=== PATIENT | male | born 1955 | race Caucasian/White ===

== ENCOUNTER 2017-09-04 12:05 | Emergency (ER) | payer OTHER ==
[~2017-09-04] VITALS: Ht 175.3 cm; Wt 91.0 kg
[~2017-09-04 12:05] MED LIST: AMLO5TAB96 PO; ASPI81 PO; AUGM875T PO; BENA25TA3 PO; LISI-357 PO; METF500T PO; [UNRECOGNIZED DRUG - OTHER]
[2017-09-04 12:07] VITALS: BP 125/83; PULSE 100; RESP 13; TEMP 98.3; O2SAT 98
[2017-09-04] MEDS ORDERED: SODIUM CHLOR 0.9% 1000 ML INJ 1,000 ML IV SCH ×2 (12:25→14:03)
[2017-09-04] MEDS ORDERED: ONDANSETRON HCL 4 MG/2 ML VIAL IVP ONE (12:30)
[2017-09-04] MEDS ORDERED: clonazePAM 1 MG TAB PO ONE (12:30)
--- NOTE | 2017-09-04 12:44 | PD ---
HPI Chief Complaint: Dizziness Time Seen by Provider: 12:20 Travel History International Travel<30 days: No Contact w/Intl Traveler<30days: No Traveled to known affect area: No History of Present Illness HPI 61-year-old male that presents to the ED for evaluation of dizziness with nausea and vomiting. Per patient is started on after again a flu shot. Per patient he happened literally an hour after he got the flu shot. Per patient his been continues. Per patient laying down makes the nausea better but standing makes the nausea worse and his vomiting. He has used some Phenergan suppositories from his with some relief. Per patient he was standing makes it severely worse. He denies any other weakness. No palpitations. No chest pain or shortness of breath. He does have a history of diabetes and hypertension. Denies any urinary or bowel movement issues. No numbness or tingling. No congestion or cough. No fevers chills or sweats. No history of vertigo in the past. No history of stroke in the past. Has never had a reaction like this before. 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 Reported Metformin (Metformin HCl) 500 Mg Tab 500 Mg PO BIDPC With meals Benadryl Allergy (Diphenhydramine HCl) 25 Mg Tab 25 Mg PO Q6H PRN Sudafed Nasal Decongestan (Pseudoephedrine HCl) Unknown Strength Tab Unknown Dose Lisinopril 5 mg (Lisinopril) 5 Mg Tab 5 Mg PO DAILY Aspirin 81 Mg Tab 81 Mg PO DAILY Norvasc (Amlodipine Besylate) 5 Mg Tab 5 Mg PO DAILY Review of Systems Except as stated in HPI: all other systems reviewed are Neg Physical Exam Narrative GENERAL: SKIN: Warm and dry. HEAD: Atraumatic. Normocephalic. EYES: Pupils equal and round. No scleral icterus. No injection or drainage. ENT: No nasal bleeding or discharge. Mucous membranes pink and moist. Tongue is midline. No uvula deviation. NECK: Trachea midline. No JVD. CARDIOVASCULAR: Regular rate and rhythm. No murmurs, S3, S4. RESPIRATORY: No accessory muscle use. Clear to auscultation. Breath sounds equal bilaterally. GASTROINTESTINAL: Abdomen soft, non-tender, nondistended. Hepatic and splenic margins not palpable. MUSCULOSKELETAL: Extremities without clubbing, cyanosis, or edema. No obvious deformities. Full range of motion of the upper and lower extremities bilaterally. 2+ pulses bilaterally. NEUROLOGICAL: Awake and alert. No obvious cranial nerve deficits. Motor grossly within normal limits. Five out of 5 muscle strength in the arms and legs. Normal speech. PSYCHIATRIC: Appropriate mood and affect; insight and judgment normal. Data Data Last Documented VS Vital Signs Date Time Temp Pulse Resp B/P (MAP) Pulse Ox O2 Delivery O2 Flow Rate FiO2 09/04/17 13:28 67 19 156/88 (110) 79 19 152/92 (112) 81 23 160/98 (118) 09/04/17 12:07 98.3 98 Orders Orders Electrocardiogram (09/04/17 12:25) Complete Blood Count With Diff (09/04/17 12:25) Basic Metabolic Panel (Bmp) (09/04/17 12:25) Ckmb (Isoenzyme) Profile (09/04/17 12:25) Troponin I (09/04/17 12:25) Ct Brain W/O Iv Contrast(Rout) (09/04/17 12:25) Iv Access Insert/Monitor (09/04/17 12:25) Ecg Monitoring (09/04/17 12:25) Oximetry (09/04/17 12:25) Ondansetron Inj (Zofran Inj) (09/04/17 12:30) Sodium Chlor 0.9% 1000 Ml Inj (Ns 1000 M (09/04/17 12:25) Clonazepam (Klonopin) (09/04/17 12:30) Orthostatic Vital Signs (09/04/17 12:31) Meclizine (Antivert) (09/04/17 12:45) Insulin Human Regular Inj (Novolin R Inj (09/04/17 13:45) Sodium Chlor 0.9% 1000 Ml Inj (Ns 1000 M (09/04/17 14:03) Labs Laboratory Tests Test 09/04/17 12:40 White Blood Count 3.5 TH/MM3 Red Blood Count 4.85 MIL/MM3 Hemoglobin 15.3 GM/DL Hematocrit 42.1 % Mean Corpuscular Volume 86.8 FL Mean Corpuscular Hemoglobin 31.6 PG Mean Corpuscular Hemoglobin Concent 36.4 % Red Cell Distribution Width 13.1 % Platelet Count 261 TH/MM3 Mean Platelet Volume 7.8 FL Neutrophils (%) (Auto) 64.6 % Lymphocytes (%) (Auto) 20.0 % Monocytes (%) (Auto) 11.9 % Eosinophils (%) (Auto) 2.4 % Basophils (%) (Auto) 1.1 % Neutrophils # (Auto) 2.2 TH/MM3 Lymphocytes # (Auto) 0.7 TH/MM3 Monocytes # (Auto) 0.4 TH/MM3 Eosinophils # (Auto) 0.1 TH/MM3 Basophils # (Auto) 0.0 TH/MM3 CBC Comment AUTO DIFF Differential Comment AUTO DIFF CONFIRMED Platelet Estimate NORMAL Platelet Morphology Comment ENLARGED Ovalocytes 1+ Blood Urea Nitrogen 14 MG/DL Creatinine 0.80 MG/DL Random Glucose 434 MG/DL Calcium Level 9.1 MG/DL Sodium Level 131 MEQ/L Potassium Level 4.3 MEQ/L Chloride Level 95 MEQ/L Carbon Dioxide Level 28.3 MEQ/L Anion Gap 8 MEQ/L Estimat Glomerular Filtration Rate 99 ML/MIN Total Creatine Kinase 52 U/L Troponin I LESS THAN 0.02 NG/ML MDM Medical Decision Making Medical Screen Exam Complete: Yes Emergency Medical Condition: Yes Medical Record Reviewed: Yes Interpretation(s) CBC & BMP Diagram 09/04/17 12:40 Calcium Level 9.1 troponin negative EKG shows sinus rhythm with no sign of acute ischemia or arrhythmia. read by me and attending. Last Impressions Head CT 09/04/17 1225 Signed Impressions: Service Date/Time: Monday, September 04, 2017 13:42 - CONCLUSION: 1. 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 No acute abnormality is identified. Colt Villaseñor MD Differential Diagnosis Vertigo versus unclear reaction versus CVA versus ACS versus electrolyte abnormality versus nausea and vomiting versus intractable symptoms Narrative Course 61-year-old male that presents to the ED for evaluation of possible vertigo. Patient was properly examined and was found to have signs and symptoms of unclear etiology. Labs and imaging were ordered. Patient was started on clonazepam, Zofran, fluids To help with symptoms. Labs and imaging showed no sign of acute disease. Patient was reassured. Patient did feel improved after medications but still not 100%. I did offer patient admission for further evaluation but he declines. He rather go home. Patient was given information for the ear nose and throat. Patient sugar was slightly elevated here and he was given insulin as well as saline here with improvement of his history or. Patient takes 500 of metformin. I will recommend that we increase this to 1000 and close follow-up with PCP. Patient was given prescriptions for meclizine and Zofran as well as ativan to help with what appears to be be vertigo. All questions were answered to the best of my ability. Follow with PCP. See ED worsening symptoms. Case was discussed with Dr. Peña who recommended outpatient treatment. Patient was given information for ENT outpatient. Given note for work. Patient has been neurovascular intact with no sign of acute disease here. He was able to ambulate with assistance fairly well. Diagnosis Primary Impression: Vertigo Referrals: Peter Cabrera MD Patient Instructions: Narcotic given in the ED, General Instructions Departure Forms: Tests/Procedures, Work Release Enter return to work date: Sep 07, 2017 Additional Instructions: Take medications as prescribed. Follow-up with PCP. See ED for any worsening symptoms. Do not drink or drive while taking pain medication. Apply ice or heat as needed for pain Med/Other Pt SpecificInfo: Prescription(s) given Scripts Lorazepam (Ativan) 1 Mg Tab 1 MG PO Q6H Y for VERTIGO, #20 TAB 0 Refills Prov: Guillermo Peña MD 09/04/17 Metformin (Metformin) 1,000 Mg Tab 1000 MG PO BIDPC for Blood Sugar Management, #60 TAB 0 Refills Prov: Guillermo Peña MD 09/04/17 Ondansetron (Zofran) 4 Mg Tab 4 MG PO Q6HR Y for NAUSEA OR VOMITING, #20 TAB 0 Refills Prov: Guillermo Peña MD 09/04/17 Meclizine (Meclizine) 25 Mg Tab 25 MG PO TID Y for VERTIGO, #20 TAB 0 Refills Prov: Guillermo Peña MD 09/04/17 Disposition: 01 DISCHARGE HOME Condition: Stable Mark Jean-Baptiste Sep 04, 2017 12:44
[2017-09-04] MEDS ORDERED: MECLIZINE HCL 25 MG TAB PO ONE (12:45)
[2017-09-04 13:12] LABS: AUTOMATED NEUTROPHIL # 2.2 TH/MM3 (1.8-7.7); BASOPHIL % 1.1 % (0.0-2.0); EOSINOPHIL # 0.1 TH/MM3 (0-0.4); EOSINOPHIL % 2.4 % (0.0-4.0); HEMATOCRIT 42.1 % (39.0-51.0); LYMPHOCYTE # 0.7 TH/MM3 (1.0-4.8); MEAN CELL VOLUME 86.8 FL (80.0-100.0); MEAN CORPUSCULAR HEMOGLOBIN 31.6 PG (27.0-34.0); MONO % 11.9 % (0.0-8.0); NEUT % 64.6 % (16.0-70.0); PLATELET COUNT 261 TH/MM3 (150-450); RED BLOOD COUNT 4.85 MIL/MM3 (4.50-5.90); RED CELL DISTRIBUTION WIDTH 13.1 % (11.6-17.2); WHITE BLOOD COUNT 3.5 TH/MM3 (4.0-11.0)
[2017-09-04 13:17] LABS: HEMO FLAGS AUTO DIFF; MEAN CORPUSCULAR HGB CONC 36.4 % (32.0-36.0)
[2017-09-04 13:28] VITALS: BP_SYST 152; BP_SYST 156; BP_SYST 160; BP_DIAS 88; BP_DIAS 92; BP_DIAS 98; RESP 19; RESP 23
[2017-09-04 13:41] LABS: ANION GAP 8 MEQ/L (5-15); BICARBONATE 28.3 MEQ/L (21.0-32.0); BLOOD UREA NITROGEN 14 MG/DL (7-18); CHLORIDE 95 MEQ/L (98-107); GLOMERULAR FILTRATION RATE 99 ML/MIN (>89); POTASSIUM 4.3 MEQ/L (3.5-5.1); SODIUM (NA) 131 MEQ/L (136-145)
[2017-09-04 13:42] LABS: CREATINE KINASE 52 U/L (39-308)
[2017-09-04] MEDS ORDERED: INSULIN HUMAN REGULAR 1,000 UNITS/10 ML VIAL SQ ONE (13:45)
--- NOTE | 2017-09-04 14:00 | RADRPT ---
EXAM DATE/TIME: 09/04/2017 13:42 [facility] COMPARISON: No previous studies available for comparison. INDICATIONS : Dizziness today. RADIATION DOSE: 69.15 CTDIvol (mGy) MEDICAL HISTORY : Hypertension. diabetes SURGICAL HISTORY : None. ENCOUNTER: Initial ACUITY: 1 day PAIN SCALE: 0/10 LOCATION: Bilateral head TECHNIQUE: Multiple contiguous axial images were obtained of the head. Using automated exposure control and adj ustment of the mA and/or kV according to patient size, radiation dose was kept as low as reasonably a chievable to obtain optimal diagnostic quality images. DICOM format image data is available electro nically for review and comparison. FINDINGS: CEREBRUM: The ventricles are normal for age. No evidence of midline shift, mass lesion, hemorrhage or acute in farction. There is a punctate area of old lacunar infarct in the right basal ganglia. No extra-axial fluid collections are seen. POSTERIOR FOSSA: The cerebellum and brainstem are intact. The 4th ventricle is midline. The cerebellopontine angle i s unremarkable. EXTRACRANIAL: The visualized portion of the orbits is intact. SKULL: The calvaria is intact. No evidence of skull fracture. CONCLUSION: 1. 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 No acute abnormality is identifie d. Colt Villaseñor MD on September 04, 2017 at 13:57 Board Certified Radiologist. This report was verified electronically.
[2017-09-04 14:04] LABS: OVALOCYTES 1+ (NORMAL); PLATELET ESTIMATE SMEAR NORMAL (NORMAL); PLATELET MORPHOLOGY ENLARGED (NORMAL)
[2017-09-04 14:05] LABS: SCAN/DIFF AUTO DIFF CONFIRMED
[2017-09-04] MEDS ORDERED: LORA-474 PO (15:12)
[2017-09-04] MEDS ORDERED: METF1000 PO (15:12)
[2017-09-04] MEDS ORDERED: ZOFR4TAB PO (15:12)
[2017-09-04] MEDS ORDERED: MECL-62 PO (15:12)
[2017-09-04 15:32] VITALS: BP 143/83
--- NOTE | 2017-09-05 12:50 | EKG ---
Date Performed: 09/04/2017 Time Performed: 12:22:48 PTAGE: 61 years EKG: Sinus rhythm NORMAL ECG INTERPRETATION BASED ON A DEFAULT AGE OF 40 YEARS Compared to prior tracing no significan t change PREVIOUS TRACING : 05/03/2002 02.45 DOCTOR: Shaun Thompson Interpretating Date/Time 09/05/2017 12:48:01
== END 2017-09-04 16:09 | disposition home or self-care (01) ==
LOC: NEPE 12:05
DX: R42 Dizziness and giddiness (principal); R11.2 Nausea with vomiting, unspecified; E11.9 Type 2 diabetes mellitus without complications; I10 Essential (primary) hypertension; Z79.84 Long term (current) use of oral hypoglycemic drugs; Z79.899 Other long term (current) drug therapy
CPT/HCPCS: 70450; 80048; 82550; 84484; 85025; 93005; 96361; 96372; 96374; 99285; J1815; J2405; J7030